=== PATIENT | female | born 1995 | race Caucasian/White ===

== ENCOUNTER 2018-10-01 14:57 | Emergency (ER) | payer OTHER ==
[2018-10-01 15:24] VITALS: BP 121/58; PULSE 98; TEMP 97.8; BMI 22.3
--- NOTE | 2018-10-01 15:54 | PDOC ---
History of Present Illness - General Chief Complaint: Laceration Stated Complaint: RT THUMB LACERATION Time Seen by Provider: 10/01/18 15:37 - History of Present Illness Initial Comments: 22 year old previously healthy female presenting with left thumb laceration after cutting her thumb with a [employer] knife while cutting a bagel. She had moderate bleeding and mild pain. She is not sure when her last tetanus shot was. denies any fevers, chills, cough, or other symptoms. 10/01/18 16:04 Past History - Past Medical History Allergies/Adverse Reactions: Allergies Allergy/AdvReac Type Severity Reaction Status Date / Time No Known Allergies Allergy Verified 10/01/18 14:58 Home Medications: Ambulatory Orders NK [No Known Home Medication] 10/01/18 COPD: No Psychiatric Problems: Yes (AUTISM, ADHD) - Suicide/Smoking/Psychosocial Hx Smoking History: Never smoked Have you smoked in the past 12 months: No Information on smoking cessation initiated: No Hx Alcohol Use: No Review of Systems - Review of Systems Constitutional: No: Chills, Diaphoresis, Fever HEENTM: No: Eye Pain, Blurred Vision, Tearing Respiratory: No: Cough, Orthopnea, Shortness of Breath Cardiac (ROS): No: Edema, Irregular Heart Rate, Lightheadedness, Palpitations ABD/GI: No: Diarrhea, Nausea, Vomiting : No: Burning, Dysuria Musculoskeletal: No: Back Pain, Joint Pain Integumentary: No: Bruising, Erythema, Flushing, Lesions, Lumps Neurological: No: Headache, Numbness Psychiatric: No: Anxiety, Depression Hematologic/Lymphatic: No: Anemia, Blood Clots, Easy Bleeding *Physical Exam - Vital Signs Last Vital Signs Temp Pulse Resp BP Pulse Ox 97.8 F 98 H 18 121/58 L 100 10/01/18 14:57 10/01/18 14:57 10/01/18 14:57 10/01/18 14:57 10/01/18 14:57 - Physical Exam General Appearance: Yes: Nourished, Appropriately Dressed. No: Apparent Distress HEENT: positive: EOMI, FACUNDO, Normal ENT Inspection, Normal Voice Neck: positive: Trachea midline, Normal Thyroid, Supple. negative: Tender, Rigid Respiratory/Chest: positive: Lungs Clear, Normal Breath Sounds. negative: Chest Tender, Respiratory Distress, Accessory Muscle Use Cardiovascular: positive: Regular Rhythm, Regular Rate Gastrointestinal/Abdominal: positive: Normal Bowel Sounds, Flat, Soft. negative : Tender Lymphatic: negative: Adenopathy, Tenderness Musculoskeletal: positive: Normal Inspection. negative: Decreased Range of Motion Extremity: positive: Normal Capillary Refill, Normal Range of Motion. negative : Normal Inspection (left linear thumb laceration acorss the dorsal lateral thumb extending approximately 3 cms near the nail bed edge. Mild bleeding, no foreign body and neurovascuarly intact distal to the site of bleeding without nail bed involvement.), Tender Integumentary: positive: Normal Color, Dry, Warm Neurologic: positive: Fully Oriented, Alert, Normal Mood/Affect, Normal Response , Motor Strength 5/5 Moderate Sedation - Procedure Monitoring Vital Signs: Procedure Monitoring Vital Signs Temperature 97.8 F 10/01/18 14:57 Pulse Rate 98 H 10/01/18 14:57 Respiratory Rate 18 10/01/18 14:57 Blood Pressure 121/58 L 10/01/18 14:57 O2 Sat by Pulse Oximetry (%) 100 10/01/18 14:57 Procedures - Laceration/Wound Repair Left Posterior Dorsal Finger 1st digit Wound Length: 2.6 to 5.0 cm Wound Explored: clean Wound's Depth, Shape: superficial Irrigated w/ Saline: Yes Betadine Prep: No Anesthesia: 1% Lidocaine Amount of Anesthetic (ccs): 4 Wound Debrided: minimal Wound Repaired With: Sutures, Dermabond Suture Size/Type: 5:0, proline Number of Sutures: 4 Layer Closure: No Progress: Linear wound closed with 5-) non-absorbable sutures after 500ccs sterile water irrigation and 4cc 1% lidocaine finger block. Hemostasis achieved and patient neurovascualrly intact before and after the procedure. Dermabond used in the center of the wound because of proximity to nail bed edge. 10/01/18 16:10 Medical Decision Making - Medical Decision Making Young healthy female with left posterior thumb laceration. Sutured per procedure note and given tdap. Bacitracin applied and wound loosely dressed. Given discharge instructions and return precautions + 10 follow up period. 10/01/18 16:11 *DC/Admit/Observation/Transfer Diagnosis at time of Disposition: Thumb laceration Qualifiers: Encounter type: initial encounter Damage to nail status: without damage Foreign body presence: without foreign body Laterality: left Qualified Code(s): S61.012A - Laceration without foreign body of left thumb without damage to nail , initial encounter - Discharge Dispostion Disposition: HOME Condition at time of disposition: Improved Decision to Admit order: No - Referrals Referrals: Jaime Sparks MD [Non Staff, Medical] - - Patient Instructions Printed Discharge Instructions: DI for Laceration Repair Additional Instructions: Please keep the area clean and dry for 24 hours. After that you may use warm soap and water to very gently clean the wound. Please return in 10 days to have your sutures removed. Please do not use your hand extensively and loosely wrap it with the gauze we provided for protection. Please return to the ED if you hae any fevers, chills, swelling of that area, or other symptoms - Post Discharge Activity
[2018-10-01] MEDS ORDERED: DIPHTH,PERTUSS(ACELL),TET 0.5 ML DISP.SYRIN IM ONE ×2 (15:55→16:03)
--- NOTE | 2018-10-01 16:00 | PDOC ---
Attending Attestation - Resident Resident Name: Dylon Monroe - ED Attending Attestation I have performed the following: I have examined & evaluated the patient, The case was reviewed & discussed with the resident, I agree w/resident's findings & plan - HPI HPI: 10/01/18 15:59 Patient was cutting a bagel and cut her right thumb shortly before arrival to the ED. - Physicial Exam PE: 10/01/18 15:59 Right thumb with a laceration overlying the dorsal aspect of the ulnar side of the right thumb. Sensation is intact. Tendons are all intact. There is no foreign body. - Medical Decision Making 10/01/18 16:00 Tetanus updated. Laceration repaired after saline irrigation with simple interrupted sutures by Dr. Monroe. Procedure was performed under my supervision.
== END 2018-10-01 16:05 | disposition home or self-care (01) ==
LOC: FER 14:57
PROC: 0HQGXZZ Repair Left Hand Skin, External Approach (ICD-10-PCS; principal; 2018-10-01)
PROC: 3E0234Z Introduction of Serum, Toxoid and Vaccine into Muscle, Percutaneous Approach (ICD-10-PCS; 2018-10-01)
DX: S61.012A Laceration without foreign body of left thumb without damage to nail, initial encounter (principal); W26.0XXA Contact with knife, initial encounter; Y93.G1 Activity, food preparation and clean up; Y92.89 Other specified places as the place of occurrence of the external cause; F84.0 Autistic disorder; F90.9 Attention-deficit hyperactivity disorder, unspecified type
CPT/HCPCS: 12002-25; 90471; 90715; 99283-25

== ENCOUNTER 2018-10-11 10:37 | Emergency (ER) | payer OTHER ==
--- NOTE | 2018-10-11 10:39 | PDOC ---
Suture Removal/Wound Check HPI - History of Present Illness Chief Complaint: Suture/Staple Removal(Here) Stated Complaint: SUTURE REMOVAL Time Seen by Provider: 10/11/18 10:39 History Source: Yes: Patient Exam Limitations: Yes: No Limitations Treated at: [facility] ED Date of Last ED visit: 10/01/18 - Previous ED Treatment Type of procedure performed on last visit: Yes: Laceration Repair - Onset of Previous Treatment Comment:: 10/11/18 10:39 22 year old previously healthy female presenting with suture removal today. she sustained left thumb laceration after cutting her thumb with a [employer] knife while cutting a bagel on 10/01/18 - repaired in the ED at that time. Since then, no f/c, drainage, redness or pain/swelling. she has only cleaned it once during this time. tdap up to date. Constitutional: no fevers or chills. MUSCULOSKELETAL: No joint pain and swelling. No neck or back pain. SKIN: no redness or skin changes, no discharge, no rash. sutured laceration wound Hematologic: no easy bruising/bleeding. NEUROLOGIC: No weakness, numbness or tingling. Allergic/Immunologic: no allergies All other systems reviewed and negative, or as documented in HPI. PE: General: NAD, well appearing, anxious. Vascular: 2+ radialis pulses symmetric and equal. Neuro: distal mercury cracking tester strength 5/5. sensation grossly intact in median/radial/ ulnar distribution. MSK: soft compartments, Cap refill <2 sec. 2+ radialis pulses bilaterally and symmetric. pollicus ext/flexion intact. no joint tenderness. FROM. Skin: color normal color, warm and well perfused. Left thumb laceration with [address], +dry skin and scabbing adjacent to nailbed and 2 small pus pockets adjacent to IP jt.. one small area <0.5cm dehiscence without purulence/ drainage. nonbleeding, nontender. 10/01/18 16:04 10/11/18 10:41 10/11/18 11:06 10/11/18 11:06 Past History - Past Medical History Allergies/Adverse Reactions: Allergies Allergy/AdvReac Type Severity Reaction Status Date / Time No Known Allergies Allergy Verified 10/11/18 10:39 Home Medications: Ambulatory Orders Cephalexin Monohydrate [Keflex -] 500 mg PO Q8H 7 Days #21 capsule 10/11/18 Cholecalciferol (Vitamin D3) [Vitamin D3] 1,000 unit PO DAILY 10/11/18 COPD: No Psychiatric Problems: Yes (AUTISM, ADHD) - Suicide/Smoking/Psychosocial Hx Smoking History: Never smoked Have you smoked in the past 12 months: No Hx Alcohol Use: No Medical Decision Making - Medical Decision Making 10/11/18 11:08 hpi as documented VS wnl. anxious. no fever, nontoxic. left thumb wound/laceration assessed and 4 suture removed w/o complications, area cleaned with soap and water and dried, dressings placed with topical xeroform. small area of wound dehiscence and already healing by 2ndary intention. 2 small pus pockets poked and small purulence expelled. also some malodor, possibly from infection vs prolonged bandaid use with lack of cleaning x 1 week. treat as infected wound due to poor compliance with cleaning wound regimen. will rx keflex x 7 day supply for wound infection wound care regimen discussed extensively with patient and father at bedside, as that will reduce chance of progressive infection with recent suture placement/ injury. monitor for signs of infection including fevers or chills, redness, streaking, swelling, purulence, malodor. wash with soap and water 2-3X per day, topical antibiotics such as neosporin. motrin/tylenol for pain control. tetanus is also up to date. pt and family made aware of impression and plan. 10/11/18 11:11 10/11/18 11:14 *DC/Admit/Observation/Transfer Diagnosis at time of Disposition: Visit for suture removal, Wound infection following procedure - Discharge Dispostion Disposition: HOME Condition at time of disposition: Improved Decision to Admit order: No - Prescriptions Prescriptions: Cephalexin Monohydrate [Keflex -] 500 mg PO Q8H 7 Days #21 capsule - Referrals Referrals: Emergency Dept,Physician, MD [Emergency Physician] - - Patient Instructions Printed Discharge Instructions: DI for Suture Removal, DI for Wound Infection Additional Instructions: Antibiotics to be taken for mild wound infection to left thumb following your injury and repair. Keflex three times a day x 1 week if not improving or worsening sx >24-48 hours, return sooner for reeval/wound check/IV antibiotics. monitor for signs of infection including fevers or chills, redness, streaking, swelling, purulence, malodor keep area clean and covered, may clean with soap and water 2-3X per day. motrin/ tylenol as needed for pain control. take medications with food. keep the xeroform or neosporin antibiotics over the wound. bandaid over follow up with primary doctor for reevaluation of your finger. avoid strenous activity such as heavy lifting or pushing, note will be provided. - Post Discharge Activity Forms/Work/School Notes: Back to Work
[2018-10-11 10:56] VITALS: BP 123/79; PULSE 94; TEMP 98.4; BMI 22.6
== END 2018-10-11 11:19 | disposition home or self-care (01) ==
LOC: FER 10:37
DX: Z48.02 Encounter for removal of sutures (principal)
CPT/HCPCS: 99281-25

== ENCOUNTER 2024-03-10 11:30 | Emergency (ER) | payer OTHER ==
[2024-03-10 11:44] VITALS: BP 134/87; PULSE 84; RESP 18; TEMP 98.1; BMI 21.6
== END 2024-03-10 11:51 | disposition home or self-care (01) ==
LOC: FER 11:30
DX: S60.450A Superficial foreign body of right index finger, initial encounter (principal); W45.8XXA Other foreign body or object entering through skin, initial encounter
CPT/HCPCS: 99283-25